=== PATIENT | female | born 1950 | race Caucasian/White ===

== ENCOUNTER 2021-02-22 12:01 | Outpatient (CLI) | payer MEDICARE, OTHER, SELFPAY ==
--- NOTE | 2021-03-16 23:32 | WPDHOMESLEEP ---
Sleep Study - Home Unattended Date of Study: 02/22/21 Ordering Provider: Sam Oglesby MD Interpreting Provider: Maria T Haynes MD Home Sleep Study Type: Apnea Link Air Height: 1.68 m Weight: 68.039 kg Body Mass Index: 24.2 Neck Circumference (inches): 14 [place]: 4 Reason for Sleep Study Loud snoring Sleep History Demetra Pickard is a 70 year old female with history of extremely loud snoring that keeps her awake. She has tried nasal strips, elevating her head with extra pillows, and still snores heavily. She expresses an interest in a oral appliance as this is what her uses and it is successful for him. She has seasonal allergies. She rarely awakens from sleep feeling short of breath and does awaken at night with heartburn, belching or coughing. For this, she takes pantoprazole regularly. She rarely has trouble sleeping with a cold. She does not wake up gasping for breath at night. She rarely sweats excessively at night. She does not notice her heart pounding or beating irregularly at night. She does not fall asleep during the day, does not fall asleep involuntarily or while driving. She does not have loss of muscle tone with strong emotion. She does not have daytime difficulties due to excessive sleepiness. She does not feel paralyzed on waking or falling asleep or have vivid dreamlike scenes upon awakening or falling asleep. She does not feel afraid to go to sleep. She does not have nightmares. She rarely remembers her dreams. She does not have racing thoughts, or have feelings of sadness or depression. She occasionally has anxiety and muscular tension. She does not notice parts of her body jerking and she does not kick at night. She does not have crawling or aching 50 feelings in her legs. She rarely has any kind of leg pain at night. She does not have morning jaw pain and does not grind her teeth during sleep. She rarely is bothered by pain during the day, never awakened by pain at night. She occasionally wakes up feeling stiff in the morning with sore achy muscles. She rarely wakes up with pain in the neck and spine. Normal bedtime is 10:00 p.m. falling asleep within 10-15 minutes typically waking once during the night to use the bathroom. She wakes the morning at 7:00 a.m.. Her weekend schedule is the same. She estimates getting 8 hours of sleep at night. She sometimes takes a nap in the afternoon or evening. A short nap may be refreshing. She is usually drowsy in the morning for an hour. She feels better in the morning compared to other times of day. She takes nortriptyline for headaches. Habits: Never smoked tobacco. Caffeine 1 cup of coffee daily and an occasional Coke. Alcohol - 2 glasses wine per week. no recreational drugs PMFSH Past Medical History Medical History (Updated 03/16/21 @ 23:53 by Maria T Haynes MD) Acid reflux Hypertension Pneumonia Seasonal allergies Surgical History Surgical History H/O removal of cyst of breast History of appendectomy History of bladder surgery Hx of hysterectomy Status post cholecystectomy Family History Family History Mother Cerebrovascular accident Breast cancer Father Acute myocardial infarction Hypertension Social History Social History Smoking status: Never smoker Alcohol intake: current Drinks per week: 2 Substance use: former Medications Home Medications Medication Instructions Recorded Confirmed Type atenolol 50 mg-chlorthalidone 25 1 tablet PO DAILY 07/14/20 07/25/20 History mg tablet cephalexin 250 mg capsule 250 mg PO Q12H #14 cap 07/14/20 07/14/20 Rx nortriptyline 10 mg capsule 10 mg PO DAILY 07/14/20 07/25/20 History pantoprazole 40 mg tablet,delayed 40 mg PO QAM 07/14/20 07/25/20 History release
[2021-03-16 23:34] VITALS: BMI 24.2
== END 2021-02-23 10:17 | disposition home or self-care (01) ==
LOC: ANHCSM 12:02
PROVIDERS: PCP Internal Medicine; Visit Provider Internal Medicine
DX: G47.33 Obstructive sleep apnea (adult) (pediatric) (principal)
CPT/HCPCS: 95806

== ENCOUNTER 2021-11-11 11:55 | Outpatient (CLI) | payer MEDICARE, SELFPAY ==
[2021-11-11 12:57] LABS: Influenza A QL RT-PCR Negative (Negative); Influenza B QL RT-PCR Negative (Negative); SARS-CoV-2 RNA PCR Positive (Negative)
== END 2021-11-11 11:56 | disposition home or self-care (01) ==
LOC: CHSLAB 11:59
PROVIDERS: PCP Internal Medicine; Visit Provider Internal Medicine
DX: U07.1 COVID-19 (principal); R51.9 Headache, unspecified; R05.9 Cough, unspecified; J02.9 Acute pharyngitis, unspecified
CPT/HCPCS: 87502; C9803; U0003; U0005

== ENCOUNTER 2022-05-04 07:40 | Outpatient (CLI) | payer MEDICARE, OTHER, SELFPAY ==
--- NOTE | 2022-05-22 15:49 | WPDHOMESLEEP ---
Sleep Study - Home Unattended Date of Study: 05/04/22 Ordering Provider: Sam Oglesby MD Interpreting Provider: Shannan Barker, DO Home Sleep Study Type: Watch PAT Height: 1.68 m Weight: 68.039 kg Body Mass Index: 24.2 Neck Circumference (inches): 13.75 [place]: 2 Reason for Sleep Study The patient was diagnosed with mild obstructive sleep apnea on February 22, 2021 using an apnea link home sleep test. Her AHI was 11. She is currently using an oral appliance. Sleep History The patient is a 72-year-old female with type 2 diabetes, hypertension, GERD and seasonal allergies that had a sleep study ordered by her primary care for re-evaluation of sleep apnea treatment. The patient performed this home sleep study while using her oral appliance. The patient denies awakening from sleep short of breath. She rarely awakens at night with heartburn, belching or cough. She rarely snores loud enough that others complain. She occasionally has trouble sleeping when she has a cold. She rarely wakes up gasping for air throughout the night. She occasionally has breathing problems at night observed by herself or others. She denies sweating excessively at night. She denies having heart palpitations or irregular heartbeats during the night. She denies falling asleep during the day and while driving. She denies sleep paralysis, cataplexy and hypnagogic / hypnopompic hallucinations. She denies having trouble at school or work due to sleepiness. She denies feeling afraid of going to sleep. She denies having nightmares. She rarely remembers her dreams. She rarely has thoughts racing through her mind. She denies feeling sad or depressed. She rarely has anxiety. She rarely has muscular tension. She rarely notices parts of her body jerk. She occasionally kicks during the night. She rarely has crawling and aching feelings in her legs and rarely has leg pain during the night. She denies grinding her teeth during sleep and awakening with morning jaw pain. She denies being bothered by pain during the day and denies being awakened by pain during the night. She occasionally wakes up feeling stiff in the morning. She rarely wakes up with sore or achy muscles. She rarely wakes up with pain in the neck, spine and other joints. The patient goes to bed at 10:30 p.m. on both weekdays and weekends. It takes her 15 minutes to fall asleep. She wakes up once throughout the night to urinate. She is able to fall back asleep within 10 minutes. She wakes up at 7:00 a.m. on weekdays and at 7:30 a.m. on the weekends. She typically gets 8 hours of sleep per night. She does not stay in bed after waking up in the morning. She currently lives with her . She does not consume any caffeinated beverages within 2 hours of bedtime. She does not engage in physical exercise before bedtime. She will watch television before falling asleep. She denies taking naps in the afternoon or the evening. She drinks 1 cup of caffeinated beverage per day. She denies tobacco, alcohol and recreational drug use. [facility] Past Medical History Medical History Acid reflux Hypertension Pneumonia Seasonal allergies Surgical History Surgical History H/O removal of cyst of breast History of appendectomy History of bladder surgery Hx of hysterectomy Status post cholecystectomy Family History Family History Mother Cerebrovascular accident Breast cancer Father Acute myocardial infarction Hypertension Social History Social History Smoking status: Never smoker Alcohol intake: current Drinks per week: 2 Substance use: former Medications Home Medications Medication Instructions Recorded Confirmed Type at
[2022-05-22 16:07] VITALS: BMI 24.2
--- NOTE | 2022-06-19 12:33 | SLEEP ---
pt stated she followed up with dentist and he adjusted oral appliance
== END 2022-05-05 13:49 | disposition home or self-care (01) ==
LOC: ANHCSM 07:41
PROVIDERS: PCP Internal Medicine; Visit Provider Internal Medicine
DX: G47.33 Obstructive sleep apnea (adult) (pediatric) (principal)
CPT/HCPCS: 95800

== ENCOUNTER 2022-10-23 08:22 | Outpatient (CLI) | payer MEDICARE, OTHER, SELFPAY ==
--- NOTE | ~2022-10-23 | XR_ITS ---
Lumbosacral Spine: AP and lateral views Clinical History: Pain Findings: The normal lordotic curve is maintained. The vertebral bodies and posterior elements are i ntact. The intervertebral disc spaces are preserved. The sacroiliac joints are normally outlined. Impression: No significant abnormality. Reviewed, dictated and finalized at [facility]. Impression: No significant abnormality.
--- NOTE | ~2022-10-23 | XR_ITS ---
AP and lateral views of the right hip Clinical history: Pain Findings: No acute fracture or dislocation is seen. Osseous alignment is anatomic. The right hip join t and visualized right SI joint are preserved. Soft tissues are unremarkable. Impression: No significant abnormality is seen. Reviewed, dictated and finalized at location . Impression: No significant abnormality is seen.
== END 2022-10-23 08:23 | disposition home or self-care (01) ==
LOC: CHSIMG 08:23
PROVIDERS: PCP Internal Medicine; Visit Provider Internal Medicine
DX: M25.551 Pain in right hip (principal)
CPT/HCPCS: 72100; 73502

== ENCOUNTER 2023-11-13 07:45 | Outpatient (CLI) | payer MEDICARE, OTHER, SELFPAY ==
--- NOTE | ~2023-11-13 | US_ITS ---
Limited Abdominal Sonogram: Real-time sonographic imaging of the right upper quadrant was performed. Clinical History: Pancreatic mass, diabetes Findings: The liver appears mildly echogenic, with no evidence of mass lesion or bile duct dilatatio n. Main portal vein demonstrates normal direction of flow. The gallbladder is absent, compatible prio r cholecystectomy. The common bile duct measures 3 mm. The visualized pancreas, aorta, and IVC are u nremarkable. Impression: Diffuse fatty infiltration of liver. No pancreatic mass seen on this exam. Consider CT or MR to further evaluate for pancreatic mass, as i ndicated. Reviewed, dictated and finalized at location . Impression: Diffuse fatty infiltration of liver. No pancreatic mass seen on this exam. Consider CT or MR to further evaluate for pancreatic mass, as indicated.
== END 2023-11-13 07:46 | disposition home or self-care (01) ==
LOC: CHSIMG 07:47
PROVIDERS: PCP Internal Medicine; Visit Provider Internal Medicine
DX: K86.9 Disease of pancreas, unspecified (principal); E11.9 Type 2 diabetes mellitus without complications; K76.0 Fatty (change of) liver, not elsewhere classified
CPT/HCPCS: 76705